=== PATIENT | male | born 1990 | race African-American/Black ===

== ENCOUNTER 2017-03-19 11:18 | Emergency (ER) | payer SELFPAY ==
[2017-03-19 11:18] VITALS: BMI 19.3
[2017-03-19 11:22] VITALS: O2SAT 99
--- NOTE | 2017-03-19 11:52 | ED PDOC ---
Arrival/HPI - General Chief Complaint: Trauma Time Seen by Provider: 03/19/17 11:40 Historian: Patient - History of Present Illness Narrative History of Present Illness (Text): 03/19/17 11:49 This 26 yo male presents to this ED c/o left shoulder pain x 1 day. Patient also noted left posterior elbow, and left abdominal abrasions. Patient stated while fishing, he slipped on a rock, causing him top fall. Patient took Tylenol this morning for pain. Denies head injury, neck pain, hip pain, elbow pain, wrist pain, back pain, hip pain, knee pain, ankle pain, dizziness, diplopia, dysarthria, n/v, or abnormal gait. He also noted small abrasion right anterior knee. Time/Duration: Other (since last night) Past Medical History - Provider Review Nursing Documentation Reviewed: Yes - Infectious Disease Hx of Infectious Diseases: None - Tetanus Immunization Tetanus Immunization: >10 years Ago - Past Medical History Past Medical History: No Previous - Psychiatric Hx Depression: No Hx Emotional Abuse: No Hx Physical Abuse: No Hx Substance Use: Yes (marijuana) - Past Surgical History Past Surgical History: No Previous - Suicidal Assessment Feels Threatened In Home Enviroment: No Family/Social History - Physician Review Nursing Documentation Reviewed: Yes Family/Social History: No Known Family HX Smoking Status: Heavy Smoker > 10 Cigarettes Daily Hx Alcohol Use: No Hx Substance Use: Yes (marijuana) Hx Substance Use Treatment: No Allergies/Home Meds Allergies/Adverse Reactions: Allergies No Known Allergies Allergy (Verified 12/07/12 22:23) Review of Systems - Review of Systems Constitutional: Normal. absent: Fatigue, Weight Change, Fevers Eyes: Normal ENT: Normal Respiratory: Normal Cardiovascular: Normal Gastrointestinal: Normal Genitourinary Male: Normal Musculoskeletal: Other (see hpi) Skin: Normal Neurological: Normal Endocrine: Normal Hemo/Lymphatic: Normal Psychiatric: Normal Physical Exam Vital Signs Temp Pulse Resp BP Pulse Ox 03/19/17 12:35 98.7 F 84 19 130/74 99 03/19/17 11:22 98.6 F 82 16 128/73 99 Temperature: Afebrile Blood Pressure: Normal Pulse: Regular Respiratory Rate: Normal Appearance: Positive for: Well-Appearing, Non-Toxic, Comfortable Pain Distress: None Mental Status: Positive for: Alert and Oriented X 3 - Systems Exam Head: Present: Atraumatic, Normocephalic, Other (no raccoon sign. No byers sign) Pupils: Present: PERRL, Other (no hyphema) Extroacular Muscles: Present: EOMI. No: Entrapment Conjunctiva: Present: Normal Ears: Present: Normal, NORMAL TM, Normal Canal, Other (no hemotympanum). No: Erythema, TM Bulging, Fluid, TM Perf Mouth: Present: Moist Mucous Membranes Pharnyx: Present: Normal. No: ERYTHEMA, EXUDATE, TONSILS ENLARGED Nose (External): Present: Atraumatic Nose (Internal): Present: Normal Inspection Neck: Present: Normal Range of Motion, Trachea Midline. No: Meningeal Signs, MIDLINE TENDERNESS, Paraspinal Tenderness Respiratory/Chest: Present: Clear to Auscultation, Good Air Exchange. No: Respiratory Distress, Accessory Muscle Use, Wheezes, Rales, Retracting, Rhonchi , Tender to Palpation Cardiovascular: Present: Regular Rate and Rhythm, Normal S1, S2. No: Murmurs Abdomen: Present: Normal Bowel Sounds, Other (3 cm superficial abrasion LLQ area.). No: Tenderness, Distention, Peritoneal Signs, Rebound, Guarding Back: Present: Normal Inspection Upper Extremity: Present: NORMAL PULSES, Neurovascularly Intact, Capillary Refill < 2s. No: Cyanosis, Edema, Normal ROM (left shoulder ROM decreased due to pain. (+) left posterior elbow abrasion. No left elbow bony tenderness. Elbow has Normal ROM) Lower Extremity: Present: Normal Inspection, NORMAL PULSES, Normal ROM, Neurovascularly Intact, Capillary Refill < 2 s, Other (very small superficial right anterior knee abrasion). No: Edema, CALF TENDERNESS, Tenderness, Swelling , Erythema, Temperature Abnormalties Neurological: Present: GCS=15, CN II-XII Intact, Speech Normal Skin: Present: Warm, Dry, Normal Color, Abrasion. No: Rashes Psychiatric: Present: Alert, Oriented x 3, Normal Insight, Normal Concentration Medical Decision Making ED Course and Treatment: 03/19/17 12:21 Re-evaluation. Patient feels better. Discussed results and plan with patient who expresses understanding. All questions answered and there is agreement with the plan to discharge home with instructions. Patient stable for discharge. Return if symptoms persist or worsen. Re-evaluation Time: 12:21 Reassessment Condition: Re-examined, Improved - RAD Interpretation Narrative RAD Interpretations (Text): SHOULDER X-RAYS: NO FX. OR DISLOCATION Radiology Orders: 03/19/17 11:56 SHOULDER LEFT [RAD] Stat - Medication Orders Current Medication Orders: Discontinued Medications Cephalexin Monohydrate (Keflex) 500 mg PO STAT STA PRN Reason: Protocol Stop: 03/19/17 11:58 Last Admin: 03/19/17 12:06 Dose: 500 mg Ibuprofen (Motrin Tab) 400 mg PO STAT STA Stop: 03/19/17 11:57 Last Admin: 03/19/17 12:04 Dose: 400 mg Disposition/Present on Arrival - Present on Arrival Any Indicators Present on Arrival: No History of DVT/PE: No History of Uncontrolled Diabetes: No Urinary Catheter: No History of Decub. Ulcer: No History Surgical Site Infection Following: None - Disposition Have Diagnosis and Disposition been Completed?: Yes Diagnosis: Shoulder pain, Abrasion, Fall Disposition: HOME/ ROUTINE Disposition Time: 12:22 Patient Plan: Discharge Condition: GOOD Discharge Instructions (ExitCare): Shoulder Sprain (ED), Abrasion (ED) Additional Instructions: Call private doctor for follow up visit in 1-2 days. take medication as instructed. Return to emergency if symptoms worsen. Clean wound with soap and water daily. Apply OTC Neosporin ointment twice a day. Return to emergency if symptoms worsen Prescriptions: Cephalexin [cephalexin] 500 mg PO QID #28 cap Ibuprofen [Motrin] 400 mg PO Q8H PRN #20 tab PRN Reason: Pain, Severe (8-10) Referrals: [facility] [Outside] - Follow up with primary [facility] [Outside] - Follow up with primary Forms: WORK NOTE
--- NOTE | 2017-03-19 12:25 | RAD ---
PROCEDURE: Radiographs of the Left Shoulder HISTORY: abrasion COMPARISON: No prior. FINDINGS: BONES: Normal. No fracture. JOINTS: Normal. Glenohumeral and acromioclavicular joints preserved. No osteoarthritis. SOFT TISSUES: Normal. OTHER FINDINGS: None. IMPRESSION: Normal radiographs of the left shoulder.
[2017-03-19 12:36] VITALS: BP 130/74; PULSE 84; RESP 19; TEMP 98.7
== END 2017-03-19 12:37 | disposition home or self-care (01) ==
LOC: ED 11:18
DX: M25.512 Pain in left shoulder (principal); S30.811A Abrasion of abdominal wall, initial encounter; W01.0XXA Fall on same level from slipping, tripping and stumbling without subsequent striking against object, initial encounter